=== PATIENT | female | born 1955 | race Caucasian/White ===

== ENCOUNTER 2017-10-01 19:23 | Emergency (ER) | payer OTHER ==
[~2017-10-01] VITALS: Ht 165.1 cm; Wt 52.2 kg
[~2017-10-01 19:23] MED LIST: ECO81 PO; ELA10 PO; GABAPENTIN300 M2 PO; HUMULIN R100 U/1 M1 IJ; SIMVASTATIN20 M1 PO
[2017-10-01 19:50] VITALS: Ht 165.1 cm; Wt 52.2 kg
[2017-10-01 21:29] LABS: CALCIUM 9.4 mg/dL (8.5-10.1); CARBON DIOXIDE 30.1 mmol/L (21-32); CREATININE SERUM 1.1 mg/dL (0.6-1.0); POTASSIUM SERUM 4.2 mmol/L (3.5-5.1)
[2017-10-01 22:13] VITALS: BP 158/101
== END 2017-10-01 22:13 | disposition home or self-care (01) ==
LOC: ED 19:23
PROVIDERS: Emergency Medicine
DX: S91.332A Puncture wound without foreign body, left foot, initial encounter (principal); E16.2 Hypoglycemia, unspecified; I10 Essential (primary) hypertension; E10.9 Type 1 diabetes mellitus without complications; X58.XXXA Exposure to other specified factors, initial encounter; Y93.89 Activity, other specified; Y92.89 Other specified places as the place of occurrence of the external cause; Y99.8 Other external cause status
CPT/HCPCS: 82962

== ENCOUNTER 2020-04-06 19:49 | Emergency (ER) | payer OTHER ==
[~2020-04-06] VITALS: Ht 165.1 cm; Wt 72.6 kg
[~2020-04-06 19:49] MED LIST changes: -GABAPENTIN300 M2 PO; +KEFLEX500 M1 PO; +LANTI SQ; +LEVEMIR100 U/M1; +LIPI10 PO; +NEU100 PO; +NOVI; +NOVI SQ
[2020-04-06 20:04] VITALS: Ht 165.1 cm; Wt 72.6 kg
[2020-04-06 20:30] LABS: microscopic required? NO
[2020-04-06 20:39] LABS: BASOPHIL % 0.4 % (0-2); PLATELET COUNT 353 x10^3mcL (130-400); RED CELL DISTRIBUTION WIDTH 13.3 % (11.5-14.5)
[2020-04-06 20:40] LABS: UA SPECIFIC GRAVITY 1.025 (1.005-1.035); urine erythrocyte NEGATIVE (NEGATIVE)
[2020-04-06 20:50] LABS: AMPHETAMINE QUAL UR NONE DETECTED (See below)
[2020-04-06 20:54] LABS: CALCIUM 9.5 mg/dL (8.5-10.1); CARBON DIOXIDE 27.5 mmol/L (21-32); CHLORIDE SERUM 101 mmol/L (98-107); CREATININE SERUM 1.5 mg/dL (0.6-1.0); GFR1 37 mL/min; GLUCOSE SERUM 174 mg/dL (74-106); POTASSIUM SERUM 4.4 mmol/L (3.5-5.1); SODIUM SERUM 139 mmol/L (136-145)
[2020-04-06 21:06] LABS: ALBUMIN 4.1 g/dL (3.4-5.0); ALKALINE PHOSPHATASE 144 U/L (46-116); ALT/SGPT 33 U/L (14-59); AST/SGOT 36 U/L (15-37); BILIRUBIN TOTAL 0.4 mg/dL (0.20-1.00); CHOLESTEROL 184 mg/dL (<200); LIPASE 90 IU/L (73-393); MAGNESIUM 2.6 mg/dL (1.8-2.4); T4(THYROXINE) 5.6 ug/dL (4.7-13.3); TOTAL PROTEIN, SERUM 7.5 g/dL (6.4-8.2)
[2020-04-06 21:10] LABS: HDL CHOLESTEROL 110 mg/dL (40-60)
[2020-04-07 08:02] VITALS: BP 155/74
== END 2020-04-07 08:02 | disposition home or self-care (01) ==
LOC: ED 19:49
PROVIDERS: Emergency Medicine
DX: S80.811A Abrasion, right lower leg, initial encounter (principal); E10.649 Type 1 diabetes mellitus with hypoglycemia without coma; I10 Essential (primary) hypertension; G93.41 Metabolic encephalopathy; X58.XXXA Exposure to other specified factors, initial encounter; Y93.89 Activity, other specified; Y92.89 Other specified places as the place of occurrence of the external cause; Y99.8 Other external cause status
CPT/HCPCS: 82962; 83880; 90715; G0480; Q0092

== ENCOUNTER 2020-05-06 02:16 | Emergency (ER) | payer OTHER ==
[~2020-05-06] VITALS: Ht 162.6 cm; Wt 52.2 kg
[2020-05-06 02:24] VITALS: Ht 162.6 cm; Wt 52.2 kg
[2020-05-06 03:02] LABS: BASOPHIL % 0.7 % (0-2); PLATELET COUNT 296 x10^3mcL (130-400); RED CELL DISTRIBUTION WIDTH 13.3 % (11.5-14.5)
[2020-05-06 04:02] LABS: CALCIUM 10.3 mg/dL (8.5-10.1); CARBON DIOXIDE 32.3 mmol/L (21-32); CREATININE SERUM 1.5 mg/dL (0.6-1.0); MAGNESIUM 2.3 mg/dL (1.8-2.4); POTASSIUM SERUM 4.6 mmol/L (3.5-5.1)
[2020-05-06 06:31] VITALS: BP 158/71
== END 2020-05-06 06:31 | disposition home or self-care (01) ==
LOC: ED 02:16
PROVIDERS: Emergency Medicine
DX: E86.0 Dehydration (principal); E16.2 Hypoglycemia, unspecified; I10 Essential (primary) hypertension; R10.9 Unspecified abdominal pain
CPT/HCPCS: 82962